=== PATIENT | male | born 1960 | race Caucasian/White ===

== ENCOUNTER 2023-07-02 11:19 | Inpatient (IN) | payer OTHER, SELFPAY ==
[2023-07-02 11:38] LABS: Hematocrit 32.7 % (42.0-52.0); Manual Diff?? YES; Mean Corpuscular HGB CONC 33.6 g/dL (32.0-36.0); Mean Corpuscular Hemoglobin 33.7 pg (27.0-31.0); Mean Corpuscular Volume 100.3 fl (78.0-98.0); Mean Platelet Volume 9.7 fL (7.4-10.4); Platelet Count 159 10x3/uL (130-400); RBC Distribution Width 12.2 % (11.5-14.5); Red Blood Cell (RBC) Count 3.26 mill/uL (4.70-6.10); White Blood Cell (WBC) Count 4.6 10x3/uL (4.8-10.8)
[2023-07-02 11:58] LABS: Delete Auto Diff?? YES
[2023-07-02 11:59] LABS: Acetaminophen Less than 10 mcg/mL (10.0-30.0); Alcohol Less than 10.0 mg/dL (Less than 10); Lipase 41 U/L (8-78); Magnesium 1.3 mg/dL (1.6-2.6); Salicylate Less than 8.0 mg/dL (15.0-30.0)
[2023-07-02 12:09] LABS: ALT (SGPT) 29 U/L (8-55); AST (SGOT) 63 U/L (5-34); Albumin 4.1 g/dL (3.4-4.8); Alkaline Phosphatase 51 U/L (40-110); Anion Gap 19 mmol/L (10-20); BUN (Urea Nitrogen) 13 mg/dL (8.4-25.7); Bilirubin, Total 0.4 mg/dL (0.2-1.2); Calc. Creatinine Clearance 0 mL/min (70-130); Calcium 9.5 mg/dL (7.8-10.44); Carbon Dioxide 23 mmol/L (23-31); Chloride 93 mmol/L (98-107); Estimated GFR 42; Globulin 3.8 g/dL (2.4-3.5); Glucose 109 mg/dL (80-115); Potassium 4.2 mmol/L (3.5-5.1); Protein, Total 7.9 g/dL (5.8-8.1); Sodium 131 mmol/L (136-145)
[2023-07-02] MEDS ORDERED: Acetaminophen 650 MG Suppository ONE (12:24)
[2023-07-02] MEDS ORDERED: Cefepime 2 GM VIAL ONE (12:25)
[2023-07-02] MEDS ORDERED: Boostrix 0.5 ML (Tdap) VIAL (>/=7 yrs of age) ONE (12:25)
[2023-07-02] MEDS ORDERED: Sodium Chloride 0.9% 100 ML ONE (12:26)
[2023-07-02 12:32] LABS: Band 7 % (5-11); CellaVision Operator ID LAB.KB; Large Platelets 9.9 % (0-5); Lymphocytes 11 % (21-51); Macrocytosis SLIGHT = 6-15 cells HPF (0-5); Monocytes 23 % (0-10); Neutrophil 58 % (42-75); Platelet Adequacy Comment Platelets Normal; Smudge Cells 10.9 %; Total Cell Count 101; Troponin I Less than 0.010 ng/mL (< 0.028)
[2023-07-02] MEDS ORDERED: LORazepam 2 MG/ML SYR.(CARPUJECT) ONE (12:36)
[2023-07-02] MEDS ORDERED: Morphine 2 MG/ML VIAL SLOW IVP PRN (12:40)
[2023-07-02] MEDS ORDERED: Ondansetron PF 4 MG/2 ML Vial IVP PRN (12:40)
[2023-07-02] MEDS ORDERED: Ondansetron ODT 4 MG TAB PO PRN (12:40)
[2023-07-02] MEDS ORDERED: Glucagon 1 MG/ML KIT IM PRN (12:40)
[2023-07-02] MEDS ORDERED: Dextrose 50% Abboject 50 ML SYRINGE SLOW IVP PRN (12:40)
[2023-07-02] MEDS ORDERED: Ipratropium/Albuterol 3 ML NEB NEB PRN (12:40)
[2023-07-02] MEDS ORDERED: Dextrose 5% in Water 1,000 ML IV PRN (12:40)
[2023-07-02] MEDS ORDERED: hydrALAZINE 20 MG/ML VIAL SLOW IVP PRN (12:40)
[2023-07-02] MEDS ORDERED: Magnesium 2 GM/50 ML BAG (IN WATER) ONE (13:14)
[2023-07-02] MEDS ORDERED: Ondansetron PF 4 MG/2 ML Vial ONE (13:14)
[2023-07-02] MEDS ORDERED: Vancomycin 1 GM/200 ML (FROZEN) BAG ONE (13:30)
[2023-07-02] MEDS ORDERED: Thiamine HCl 200 MG/2 ML VIAL ONE (13:54)
[2023-07-02] MEDS ORDERED: Lorazepam 1 MG TAB PO PRN (13:59)
[2023-07-02] MEDS ORDERED: Lorazepam 2 MG/ML VIAL SLOW IVP PRN (13:59)
[2023-07-02] MEDS ORDERED: Electrolyte Replacement Protocol 1 EACH FS SCH (14:00)
[2023-07-02] MEDS ORDERED: Lorazepam 1 MG TAB PO SCH (14:00)
[2023-07-02] MEDS: TETANUS, DIPHTHERIA TOX,ADULT (TDVAX) 0.5 ML VIAL IM ONE (15:32)
[2023-07-02] MEDS: Sodium Chloride 0.9% 1,000 ML IV SCH (15:38)
[2023-07-02] MEDS: Lorazepam 2 MG/ML VIAL SLOW IVP SCH (15:44)
[2023-07-02] MEDS: Labetalol HCl 100 MG/20 ML VIAL SLOW IVP PRN (16:05)
[2023-07-02 17:03] LABS: Bilirubin Negative (Negative); Blood, Urine 3+ (Negative); Clarity Clear (Clear); Glucose, Urine (Dipstick) 30 mg/dL (Negative); Ketone, Urine Negative (Negative); Leukocyte Negative Leu/uL (Negative); Nitrite Negative (Negative); Protein, Urine (Dipstick) 30 mg/dL (Neg-Trace); RBC/HPF Greater than 50 HPF (0-3); Specific Gravity, Urine 1.011 (1.002-1.036); Squamous Epithelial None Seen HPF (0-3); Urobilinogen Normal mg/dL (Less than 2)
[2023-07-02 17:10] LABS: Amphetamine Not Detected (NotDetected); Barbiturates Screen Not Detected (NotDetected); Benzodiazepine Screen Not Detected (NotDetected); Cocaine Metabolite Screen Not Detected (NotDetected); Methadone Not Detected (NotDetected); Methamphetamine Not Detected (NotDetected); Opiate Screen Not Detected (NotDetected); Oxycodone Screen Not Detected (NotDetected); Phencyclidine (PCP) Not Detected (NotDetected); THC/Cannabinoid Screen Not Detected (NotDetected); Tricyclic Screen Not Detected (NotDetected)
[2023-07-02 17:20] LABS: Bacteria/HPF 1+ HPF (None Seen)
[2023-07-02] MEDS: Lorazepam 2 MG/ML VIAL IM PRN (19:41)
[2023-07-02] MEDS: Magnesium 2 GM/50 ML(in water) 2 GM in Premix 1 BAG IVPB SCH (22:22)
[2023-07-02] MEDS: Famotidine/PF 20 mg/2ml Vial SLOW IVP SCH (22:22)
[2023-07-02] MEDS: Midazolam HCl 2 mg/2 ml Vial SLOW IVP SCH (23:18)
[2023-07-03 03:33] LABS: Hematocrit 32.5 % (42.0-52.0); Manual Diff?? YES; Mean Corpuscular HGB CONC 33.8 g/dL (32.0-36.0); Mean Corpuscular Hemoglobin 33.1 pg (27.0-31.0); Mean Corpuscular Volume 97.9 fl (78.0-98.0); Mean Platelet Volume 10.2 fL (7.4-10.4); Platelet Count 133 10x3/uL (130-400); RBC Distribution Width 11.9 % (11.5-14.5); Red Blood Cell (RBC) Count 3.32 mill/uL (4.70-6.10); White Blood Cell (WBC) Count 6.4 10x3/uL (4.8-10.8)
[2023-07-03 03:34] LABS: Delete Auto Diff?? YES
[2023-07-03 03:57] LABS: ALT (SGPT) 31 U/L (8-55); AST (SGOT) 83 U/L (5-34); Albumin 3.7 g/dL (3.4-4.8); Alkaline Phosphatase 46 U/L (40-110); Anion Gap 12 mmol/L (10-20); BUN (Urea Nitrogen) 10 mg/dL (8.4-25.7); Bilirubin, Total 0.5 mg/dL (0.2-1.2); Calc. Creatinine Clearance 59 mL/min (70-130); Calcium 8.7 mg/dL (7.8-10.44); Carbon Dioxide 26 mmol/L (23-31); Chloride 94 mmol/L (98-107); Estimated GFR 81; Globulin 3.5 g/dL (2.4-3.5); Glucose 94 mg/dL (80-115); Potassium 3.9 mmol/L (3.5-5.1); Protein, Total 7.2 g/dL (5.8-8.1); Sodium 128 mmol/L (136-145)
[2023-07-03 04:30] LABS: Band 1 % (5-11); CellaVision Operator ID lab.abc; Lymphocytes 9 % (21-51); Monocytes 19 % (0-10); Neutrophil 71 % (42-75); Platelet Adequacy Comment Platelets Normal; RBC Morphology Within Normal Limits; Total Cell Count 100
[2023-07-03] MEDS: Acetaminophen 650 MG Suppository PR PRN (05:24)
[2023-07-03] MEDS: Cefepime 1 GM in Sodium Chloride 0.9% 100 ML IVPB SCH (05:40)
[2023-07-03] MEDS: FLU VACC QS2023-24(6MOS UP)/PF 60 MCG/0.5 ML SYRINGE IM ONE (08:36)
[2023-07-03] MEDS: Multivit, Therapeutic 1 TAB PO SCH (09:02)
[2023-07-03] MEDS: Folic Acid 1 MG TAB PO SCH (09:02)
[2023-07-03] MEDS ORDERED: Lorazepam 1 MG TAB PO PRN (13:59)
[2023-07-03] MEDS ORDERED: Lorazepam 2 MG/ML VIAL SLOW IVP PRN (13:59)
[2023-07-03] MEDS: Thiamine HCl 200 MG/2 ML VIAL SLOW IVP SCH (15:02)
[2023-07-04 03:54] LABS: %Basophils 0.3 % (0.0-1.0); %Lymphocytes 6.7 % (21.0-51.0); %Monocytes 18.1 % (0.0-10.0); %Neutrophils 74.5 % (42.0-75.0); Hemoglobin 11.5 g/dL (14.0-18.0); Mean Corpuscular HGB CONC 33.8 g/dL (32.0-36.0); Mean Corpuscular Hemoglobin 33.3 pg (27.0-31.0); Mean Corpuscular Volume 98.6 fl (78.0-98.0); Mean Platelet Volume 10.4 fL (7.4-10.4); Platelet Count 100 10x3/uL (130-400); RBC Distribution Width 11.8 % (11.5-14.5); Red Blood Cell (RBC) Count 3.45 mill/uL (4.70-6.10); White Blood Cell (WBC) Count 10.8 10x3/uL (4.8-10.8)
[2023-07-04 04:19] LABS: ALT (SGPT) 33 U/L (8-55); AST (SGOT) 80 U/L (5-34); Albumin 3.2 g/dL (3.4-4.8); Alkaline Phosphatase 39 U/L (40-110); Anion Gap 15 mmol/L (10-20); BUN (Urea Nitrogen) 15 mg/dL (8.4-25.7); Bilirubin, Total 0.4 mg/dL (0.2-1.2); Calc. Creatinine Clearance 60 mL/min (70-130); Calcium 8.4 mg/dL (7.8-10.44); Carbon Dioxide 21 mmol/L (23-31); Chloride 94 mmol/L (98-107); Estimated GFR 85; Globulin 3.7 g/dL (2.4-3.5); Glucose 87 mg/dL (80-115); Potassium 4.2 mmol/L (3.5-5.1); Protein, Total 6.9 g/dL (5.8-8.1); Sodium 126 mmol/L (136-145)
[2023-07-04 05:15] LABS: Anisocytosis SLIGHT = 6-15 cells HPF (0-5); CellaVision Operator ID LAB.JMM; Macrocytosis SLIGHT = 6-15 cells HPF (0-5); Ovalocytes SLIGHT = 2-5 cells HPF (0-1); Platelet Adequacy Comment Platelets Decreased; Polychromasia SLIGHT = 2-3 cells HPF (0-2)
[2023-07-04] MEDS ORDERED: LORazepam 2 MG/ML SYR.(CARPUJECT) IVP PRN (13:59)
[2023-07-04] MEDS ORDERED: Lorazepam 1 MG TAB PO PRN (13:59)
[2023-07-04] MEDS ORDERED: Lorazepam 2 MG/ML VIAL SLOW IVP SCH (14:00)
[2023-07-04] MEDS ORDERED: Lorazepam 0.5 MG TAB PO SCH (14:00)
[2023-07-05 08:53] LABS: Anion Gap 13 mmol/L (10-20); BUN (Urea Nitrogen) 19 mg/dL (8.4-25.7); Calc. Creatinine Clearance 68 mL/min (70-130); Calcium 8.7 mg/dL (7.8-10.44); Carbon Dioxide 24 mmol/L (23-31); Chloride 99 mmol/L (98-107); Estimated GFR 98; Glucose 85 mg/dL (80-115); Potassium 3.6 mmol/L (3.5-5.1); Sodium 132 mmol/L (136-145)
[2023-07-05] MEDS: Lorazepam 2 MG/ML VIAL SLOW IVP PRN ×2 (11:50→20:07)
[2023-07-05] MEDS ORDERED: Lorazepam 2 MG/ML VIAL SLOW IVP PRN (13:59)
[2023-07-05] MEDS ORDERED: Lorazepam 0.5 MG TAB PO PRN (13:59)
[2023-07-05] MEDS ORDERED: Ondansetron ODT 4 MG TAB PO PRN (16:01)
[2023-07-05] MEDS ORDERED: Electrolyte Replacement Protocol 1 EACH FS SCH (16:15)
[2023-07-05] MEDS: Lorazepam 1 MG TAB PO SCH (16:49)
[2023-07-05] MEDS: Lorazepam 2 MG/ML VIAL SLOW IVP SCH (16:50)
[2023-07-05] MEDS: Thiamine HCl 200 MG/2 ML VIAL SLOW IVP SCH (17:36)
[2023-07-05] MEDS ORDERED: Folic Acid 1 MG TAB PO SCH (21:00)
[2023-07-05] MEDS ORDERED: Multivit, Therapeutic 1 TAB PO SCH (21:00)
[2023-07-06] MEDS: Lorazepam 1 MG TAB PO PRN (06:41)
[2023-07-06] MEDS: Thiamine HCl 200 MG/2 ML VIAL SLOW IVP SCH (08:21)
[2023-07-06] MEDS: hydrALAZINE 20 MG/ML VIAL SLOW IVP PRN (10:05)
[2023-07-06] MEDS ORDERED: Thiamine 100 MG TAB PO SCH (14:00)
[2023-07-06] MEDS: Ampicillin/Sulbactam 3 GM in Sodium Chloride 0.9% 100 ML IVPB SCH (15:31)
[2023-07-06] MEDS: Acetaminophen 325 MG TAB PO PRN (15:31)
[2023-07-06] MEDS ORDERED: Lorazepam 1 MG TAB PO PRN (16:01)
[2023-07-06] MEDS: Furosemide 40 MG (4 mL) VIAL SLOW IVP SCH (16:06)
[2023-07-07 05:29] LABS: Anion Gap 13 mmol/L (10-20); BUN (Urea Nitrogen) 15 mg/dL (8.4-25.7); Calc. Creatinine Clearance 73 mL/min (70-130); Calcium 8.9 mg/dL (7.8-10.44); Carbon Dioxide 30 mmol/L (23-31); Chloride 98 mmol/L (98-107); Estimated GFR 99; Glucose 102 mg/dL (80-115); Sodium 138 mmol/L (136-145)
[2023-07-07 05:35] LABS: Critical Call Chemistry ICU.RB@0535; Potassium 2.6 mmol/L (3.5-5.1)
[2023-07-07] MEDS: Furosemide 40 MG (4 mL) VIAL SLOW IVP SCH (05:39)
[2023-07-07] MEDS ORDERED: Potassium Bicarbonate/Cit Ac 20 MEQ TAB PO SCH (07:00)
[2023-07-07] MEDS: Potassium Chloride 20 MEQ in Premix 1 BAG IVPB SCH ×2 (07:47→20:26)
[2023-07-07 08:31] LABS: Magnesium 1.7 mg/dL (1.6-2.6)
[2023-07-07] MEDS: Magnesium 2 GM/50 ML(in water) 2 GM in Premix 1 BAG IVPB SCH (09:50)
[2023-07-07] MEDS: Lorazepam 0.5 MG TAB PO SCH (15:33)
[2023-07-07] MEDS ORDERED: Lorazepam 1 MG TAB PO PRN (16:01)
[2023-07-07 18:18] LABS: Anion Gap 16 mmol/L (10-20); BUN (Urea Nitrogen) 15 mg/dL (8.4-25.7); Calc. Creatinine Clearance 72 mL/min (70-130); Calcium 8.9 mg/dL (7.8-10.44); Carbon Dioxide 25 mmol/L (23-31); Chloride 99 mmol/L (98-107); Estimated GFR 98; Glucose 107 mg/dL (80-115); Potassium 3.4 mmol/L (3.5-5.1); Sodium 137 mmol/L (136-145)
[2023-07-07] MEDS: Acetaminophen 500 MG TAB PO SCH (18:23)
[2023-07-07] MEDS: Morphine 2 MG/ML VIAL SLOW IVP PRN (21:50)
[2023-07-08 06:27] LABS: Anion Gap 13 mmol/L (10-20); BUN (Urea Nitrogen) 15 mg/dL (8.4-25.7); Calc. Creatinine Clearance 68 mL/min (70-130); Carbon Dioxide 28 mmol/L (23-31); Chloride 99 mmol/L (98-107); Estimated GFR 99; Glucose 139 mg/dL (80-115); Magnesium 2.1 mg/dL (1.6-2.6); Potassium 3.2 mmol/L (3.5-5.1); Sodium 137 mmol/L (136-145)
[2023-07-08] MEDS ORDERED: Potassium Chloride 20 MEQ TAB PO SCH (08:00)
[2023-07-08] MEDS: Potassium Chloride 20 MEQ in Premix 1 BAG IVPB SCH (08:20)
[2023-07-08] MEDS: Thiamine 100 MG TAB PO SCH (08:21)
[2023-07-08] MEDS: cloNIDine 0.2 MG TAB PO SCH (08:23)
[2023-07-08] MEDS ORDERED: cloNIDine 0.2 MG TAB PO SCH (12:00)
[2023-07-08] MEDS: Potassium Chloride 20 MEQ TAB PO SCH (15:44)
[2023-07-09] MEDS: Senokot S 8.6-50 MG TAB PO PRN (06:32)
[2023-07-09] MEDS: Lorazepam 0.5 MG TAB PO PRN (08:22)
[2023-07-09] MEDS: Lisinopril 10 MG TAB PO SCH (21:59)
[2023-07-11] MEDS: carBAMazepine 200 MG TAB PER TUBE SCH (16:47)
[2023-07-13] MEDS: cloNIDine 0.1 MG TAB PO SCH (15:33)
[2023-07-17 05:24] LABS: #Basophils 0.1 thou/uL (0.0-0.2); #Eosinphils 0.2 thou/uL (0.0-0.7); #Monocytes 1.5 thou/uL (0.11-0.59); #Neutrophils 5.8 thou/uL (1.40-6.50); %Basophils 1.5 % (0.0-1.0); %Eosinophils 2.4 % (0.0-10.0); %Lymphocytes 16.1 % (21.0-51.0); %Monocytes 16.1 % (0.0-10.0); %Neutrophils 63.5 % (42.0-75.0); Hematocrit 37.6 % (42.0-52.0); Hemoglobin 12.6 g/dL (14.0-18.0); Mean Corpuscular HGB CONC 33.5 g/dL (32.0-36.0); Mean Corpuscular Hemoglobin 32.9 pg (27.0-31.0); Mean Corpuscular Volume 98.2 fl (78.0-98.0); Mean Platelet Volume 9.6 fL (7.4-10.4); Platelet Count 673 10x3/uL (130-400); RBC Distribution Width 12.5 % (11.5-14.5); Red Blood Cell (RBC) Count 3.83 mill/uL (4.70-6.10); White Blood Cell (WBC) Count 9.1 10x3/uL (4.8-10.8)
[2023-07-17 05:34] LABS: Anion Gap 15 mmol/L (10-20); BUN (Urea Nitrogen) 17 mg/dL (8.4-25.7); Calc. Creatinine Clearance 55 mL/min (70-130); Calcium 9.7 mg/dL (7.8-10.44); Carbon Dioxide 22 mmol/L (23-31); Chloride 100 mmol/L (98-107); Estimated GFR 76; Glucose 100 mg/dL (80-115); Potassium 4.3 mmol/L (3.5-5.1); Sodium 133 mmol/L (136-145)
[2023-07-19 08:53] VITALS: BMI 16.1
[2023-07-23] MEDS: cloNIDine 0.1 MG TAB PO SCH (18:20)
[2023-07-23] MEDS: Lactulose 20 GM (30 mL) UDCUP PO SCH (20:27)
[2023-07-23] MEDS: Enoxaparin 30 MG (0.3 mL) SYRINGE SC SCH (20:32)
[2023-07-23] MEDS: Senokot S 8.6-50 MG TAB PO SCH (20:32)
[2023-07-24] MEDS: Haloperidol Lactate 5 MG/ML VIAL IM SCH (23:33)
[2023-07-25] MEDS: Melatonin 3 MG TAB PO SCH (21:35)
[2023-08-01 06:04] LABS: Hematocrit 37.5 % (42.0-52.0); Platelet Count 314 10x3/uL (130-400)
[2023-08-05] MEDS: Sodium Chloride 0.9% 1,000 ML IV SCH (21:58)
[2023-08-06 04:47] LABS: Anion Gap 11 mmol/L (10-20); BUN (Urea Nitrogen) 33 mg/dL (8.4-25.7); Calc. Creatinine Clearance 41 mL/min (70-130); Calcium 9.4 mg/dL (7.8-10.44); Carbon Dioxide 27 mmol/L (23-31); Chloride 107 mmol/L (98-107); Estimated GFR 55; Glucose 95 mg/dL (80-115); Potassium 4.4 mmol/L (3.5-5.1); Sodium 141 mmol/L (136-145)
[2023-08-06] MEDS: Albumin 5% 25 GM (500 mL) BOT IVPB SCH (08:24)
[2023-08-06] MEDS: Lactated Ringer's 1,000 ML IV SCH (14:14)
[2023-08-07 07:44] LABS: Anion Gap 12 mmol/L (10-20); BUN (Urea Nitrogen) 25 mg/dL (8.4-25.7); Calc. Creatinine Clearance 53 mL/min (70-130); Calcium 9.5 mg/dL (7.8-10.44); Carbon Dioxide 23 mmol/L (23-31); Chloride 109 mmol/L (98-107); Estimated GFR 75; Glucose 90 mg/dL (80-115); Potassium 4.6 mmol/L (3.5-5.1); Sodium 139 mmol/L (136-145)
[2023-08-10 07:22] LABS: Hematocrit 32.6 % (42.0-52.0); Hemoglobin 10.8 g/dL (14.0-18.0); Platelet Count 319 10x3/uL (130-400)
[2023-08-11 15:40] VITALS: BP 116/70; TEMP 97.5
== END 2023-08-11 17:33 | DRG 82 ==
LOC: ERS 11:19 → CCU 12:36 → IMCU/EMU 07-06 13:05 → SJJU 07-11 08:24 → SURG A 07-23 19:33
PROVIDERS: ADMIT Student in an Organized Health Care Education/Training Program; ATTEND Student in an Organized Health Care Education/Training Program
DX: S06.6XAA Traumatic subarachnoid hemorrhage with loss of consciousness status unknown, initial encounter (principal); G93.41 Metabolic encephalopathy; G93.6 Cerebral edema; J18.9 Pneumonia, unspecified organism; F10.239 Alcohol dependence with withdrawal, unspecified; E87.1 Hypo-osmolality and hyponatremia; Z59.00 Homelessness unspecified; N17.9 Acute kidney failure, unspecified; S02.119A Unspecified fracture of occiput, initial encounter for closed fracture; S06.5XAA Traumatic subdural hemorrhage with loss of consciousness status unknown, initial encounter; N18.9 Chronic kidney disease, unspecified; S06.9XAA Unspecified intracranial injury with loss of consciousness status unknown, initial encounter; S06.2XAA Diffuse traumatic brain injury with loss of consciousness status unknown, initial encounter; F15.90 Other stimulant use, unspecified, uncomplicated; W19.XXXA Unspecified fall, initial encounter; E87.6 Hypokalemia; E83.42 Hypomagnesemia; Z71.41 Alcohol abuse counseling and surveillance of alcoholic
CPT/HCPCS: 36415; 36416; 70450; 71045; 72125; 74018; 74230; 80048; 80053; 80306; 80307; 81001; 82140; 82565; 83690; 83735; 84443; 84484; 85014; 85018; 85025; 85049; 87040; 87086; 90471; 90715; 93005; 93970; 96365; 96367; 96375; G0390; J0295; J0360; J0692; J1630; J1650; J1940; J2060; J2250; J2272; J2405; J3370-JW; J3411; J3475; J3480; J3490; J7050; J7120; P9045; S0028

== ENCOUNTER 2023-11-11 15:01 | Emergency (ER) | payer MEDICAID, OTHER ==
[2023-11-11 16:15] LABS: #Basophils 0.07 10x3/uL (0.0-0.2); %Basophils 1.1 % (0.0-1.0); %Eosinophils 2.4 % (0.0-10.0); %Lymphocytes 22.6 % (21.0-51.0); %Monocytes 12.1 % (0.0-10.0); %Neutrophils 61.5 % (42.0-75.0); Hematocrit 34.5 % (42.0-52.0); Hemoglobin 11.4 g/dL (14.0-18.0); Mean Corpuscular Hemoglobin 31.1 pg (27.0-31.0); Mean Corpuscular Volume 94.3 fL (78.0-98.0); Platelet Count 355 10x3/uL (130-400); RBC Distribution Width 11.9 % (11.5-14.5); Red Blood Cell (RBC) Count 3.66 mill/uL (4.70-6.10)
[2023-11-11 16:25] LABS: ALT (SGPT) 11 U/L (8-55); AST (SGOT) 16 U/L (5-34); Albumin 3.9 g/dL (3.4-4.8); Alkaline Phosphatase 66 U/L (40-110); Anion Gap 15 mmol/L (10-20); BUN (Urea Nitrogen) 28 mg/dL (8.4-25.7); Bilirubin, Total 0.3 mg/dL (0.2-1.2); Calc. Creatinine Clearance 0 mL/min (70-130); Carbon Dioxide 28 mmol/L (23-31); Chloride 103 mmol/L (98-107); Estimated GFR 58; Globulin 4.5 g/dL (2.4-3.5); Glucose 72 mg/dL (80-115); Potassium 4.6 mmol/L (3.5-5.1); Protein, Total 8.4 g/dL (5.8-8.1); Sodium 141 mmol/L (136-145)
[2023-11-11 16:31] LABS: Troponin I Less than 0.010 ng/mL (< 0.028)
[2023-11-11] MEDS ORDERED: Dextrose 10% in Water 250 ML ONE (17:09)
[2023-11-11 18:07] LABS: Bacteria/HPF None Seen HPF (None Seen); Bilirubin Negative (Negative); Blood, Urine Negative (Negative); CAUTI Indications for Culture Alt mental st,lethar; Clarity Clear (Clear); Glucose, Urine (Dipstick) Normal (Negative); Ketone, Urine Negative (Negative); Leukocyte Negative Leu/uL (Negative); Nitrite Negative (Negative); Protein, Urine (Dipstick) Negative (Neg-Trace); RBC/HPF 0-3 HPF (0-3); Specific Gravity, Urine 1.019 (1.002-1.036); Squamous Epithelial 0-3 HPF (0-3); Urobilinogen Normal mg/dL (Less than 2); WBC/HPF 0-3 HPF (0-3)
[2023-11-11 18:08] LABS: Urine Culture Reflex No No
== END 2023-11-11 20:05 ==
LOC: ERS 15:01
DX: E86.0 Dehydration (principal); N17.9 Acute kidney failure, unspecified; E16.2 Hypoglycemia, unspecified; I10 Essential (primary) hypertension; Z79.82 Long term (current) use of aspirin
CPT/HCPCS: 70450; 80053; 81001; 83735; 84484; 85025; 93005; 96361; 96365

== ENCOUNTER 2024-03-02 16:55 | Emergency (ER) | payer OTHER ==
[2024-03-02] MEDS ORDERED: Acetaminophen 500 MG TAB ONE (17:43)
[2024-03-02] MEDS ORDERED: Boostrix 0.5 ML (Tdap) VIAL (>/=7 yrs of age) ONE (17:43)
[2024-03-02 18:14] LABS: #Basophils 0.05 10x3/uL (0.0-0.2); %Basophils 0.7 % (0.0-1.0); %Eosinophils 2.1 % (0.0-10.0); %Lymphocytes 24.6 % (21.0-51.0); %Monocytes 11.3 % (0.0-10.0); Hemoglobin 12.3 g/dL (14.0-18.0); Mean Corpuscular HGB CONC 32.4 g/dL (32.0-36.0); Mean Corpuscular Hemoglobin 29.4 pg (27.0-31.0); Mean Corpuscular Volume 90.7 fL (78.0-98.0); Mean Platelet Volume 10.1 fL (7.4-10.4); Platelet Count 294 10x3/uL (130-400); RBC Distribution Width 12.9 % (11.5-14.5); Red Blood Cell (RBC) Count 4.19 mill/uL (4.70-6.10)
[2024-03-02 18:28] LABS: ALT (SGPT) 11 U/L (8-55); AST (SGOT) 15 U/L (5-34); Albumin 3.8 g/dL (3.4-4.8); Alkaline Phosphatase 76 U/L (40-110); Anion Gap 13 mmol/L (10-20); BUN (Urea Nitrogen) 13 mg/dL (8.4-25.7); Bilirubin, Total 0.4 mg/dL (0.2-1.2); Calc. Creatinine Clearance 0 mL/min (70-130); Calcium 9.7 mg/dL (7.8-10.44); Carbon Dioxide 26 mmol/L (23-31); Chloride 105 mmol/L (98-107); Estimated GFR 82; Globulin 3.8 g/dL (2.4-3.5); Glucose 65 mg/dL (80-115); Potassium 4.1 mmol/L (3.5-5.1); Protein, Total 7.6 g/dL (5.8-8.1); Sodium 140 mmol/L (136-145)
== END 2024-03-02 20:35 | disposition home or self-care (01) ==
LOC: ERS 16:55
DX: R51.9 Headache, unspecified (principal); F17.220 Nicotine dependence, chewing tobacco, uncomplicated; I10 Essential (primary) hypertension; Z55.6 Problems related to health literacy; Z79.899 Other long term (current) drug therapy; W22.8XXA Striking against or struck by other objects, initial encounter; Z79.82 Long term (current) use of aspirin
CPT/HCPCS: 36415; 70450; 72125; 80053; 85025; 90715; 93005